=== PATIENT | female | born 1980 | race Caucasian/White ===

== ENCOUNTER 2024-02-13 12:30 | Emergency (ER) | payer MEDICAID, SELFPAY ==
[2024-02-13 12:38] VITALS: BP 149/82; PULSE 79; RESP 16; TEMP 37.1; O2SAT 98; BMI 28.3
--- NOTE | 2024-02-13 12:38 | ED.GENADULT ---
HPI - General Adult General Chief complaint: Back Pain/Injury Stated complaint: L sided pain Time Seen by Provider: 02/13/24 14:49 Source: patient Mode of arrival: ambulatory Limitations: no limitations History of Present Illness ED Provider: Jesus Alberto VELÁSQUEZ HPI narrative: This is a 43-year-old female history of chronic pain to neck and back presenting with neck pain, back pain ongoing for the past year, patient reports she recently moved here from [place], she used to take gabapentin and a muscle relaxer for pain however has not been able to get a refill for her meds as she does not have a primary care provider in the region. She reports today's pain feels like her typical pain. No trauma. No numbness, tingling, fevers, chills, chest pain, shortness of breath, nausea, vomiting, abdominal pain, headache, vision changes, dizziness or weakness. No recent illness Related Data Previous Rx's ?Medication ?Instructions ?Recorded cyclobenzaprine 10 mg tablet 10 mg PO BEDTIME PRN muscle spasm 02/13/24 #7 tabs gabapentin 100 mg capsule 100 mg PO TID #20 caps 02/13/24 ketorolac 10 mg tablet 10 mg PO TID PRN pain 5 days #15 02/13/24 tabs Allergies Allergy/AdvReac Type Severity Reaction Status Date / Time Penicillins Allergy Unknown Verified 02/13/24 12:44 Review of Systems Review of Systems: Yes all other systems are reviewed and are negative [facility] Past Medical History Attestation statement: The following information was validated with the patient. Source: old records reviewed and nursing notes reviewed Social History Social History Advance Directives: No Advance Directives Information Provided: No Do you have a plan to hurt others: No Plan Physical Exam ED Vital Signs: Vital Signs - 24 hr 02/13/24 12:38 Temperature 98.7 F Pulse Rate 79 Respiratory Rate 16 Blood Pressure 149/82 H Pulse Oximetry 98 Oxygen Delivery Method Room Air BMI result Body Mass Index 28.3 vss Appearance: Alert.? Oriented X3.? No acute distress.? Head: Normocephalic, atraumatic, no step-offs or deformities Eyes: Pupils equal, round and reactive to light.? ENT: Pharynx normal.? Neck: Normal inspection.? Neck supple.?+ left sided cervical paraspinous tenderness on exam CVS: Normal heart rate and rhythm.? Pulses normal.? Respiratory: No respiratory distress.? Breath sounds normal.? Abdomen: Soft and nontender.? Skin: Skin warm and dry.? Normal skin color.? Normal skin turgor.? Extremities: No lower extremity edema.? No calf ttp. 5/5 strength to bilateral upper and lower extremities Back: No midline tenderness, no C-spine tenderness, full range of motion, no CVA tenderness bilaterally + left lumbar paraspinous muscle ttp on exam Neuro: Oriented X 3.? No motor deficit.? No sensory deficit. CN 2-12 intact Course Course Course Narrative: This is a rapid medical exam performed by Stacy Vásquez NP: Additional HPI, ROS, PE not included below will be deferred to primary provider. Patient is a 43-year-old Macanese speaking female presenting to the emergency department with complaint of left sided sciatic pain x 1 week. Does not have a PCP. Requesting a prescription for pain medication. Last seen in an ED in [place] 12/16. Denies saddle anesthesia, bowel/bladder incontinence. Plan: lumbar xray Reevaluation(s) Reevaluation #1: Educated patient on diagnosis and treatment plan, answered all question, patient verbalizes understanding. At this time patient will be discharged home, advised to return with new or worsening symptoms. Educated on worrisome signs and symptoms and when to return. At this time I feel comfortable discharge home. Time: 15:11 Medical Decision Making Medical Decision Making [facility] Narrative: 1502 43 year old female presents w/ pain to the left side of my body X 1 year PE cervical and lumbar paraspinous muscle ttp on exam Likely paraspinous muscle spasms likely. Unlikely cauda eqina , cord compression, epidural abscess, fx, dislocaiton. No signs of NV compromise, meningitis, encephalitis. Plan- pain control Differential Diagnosis Differential Diagnoses: The differential diagnosis associated with the presentation includes Likely paraspinous muscle spasms likely. Unlikely cauda eqina , cord compression, epidural abscess, fx, dislocaiton. No signs of NV compromise, meningitis, encephalitis. Admission/Observation Consideration of admission/observation: Escalation of care including admission/observation considered possible External Record Review No records Prescription Management I considered prescription management with: Pain Medication (gabapentin, cyclobenzaprine, ) Discharge Plan Discharge Clinical Impression: Cervical radiculopathy, Lumbar radiculopathy Patient Disposition: Home, Self-Care Instructions: Lumbar Radiculopathy (ED), Cervical Radiculopathy (ED) Additional Instructions: Take your medications as prescribed. If you were prescribed antibiotics today, it is important that you take your medication to their entirety, do not skip any doses, do not finish them early. Follow-up with your primary care provider this week. Return to the emergency department with new or worsening symptoms. Such as fevers, chills, chest pain, shortness of breath, nausea, vomiting, dizziness, headache, vision changes, lethargy In case of emergency call 911 Toradol has been sent to your pharmacy, you tolerated this well in the department. Please take this as prescribed do not take this with ibuprofen, or other NSAIDs, do not mix this with alcohol. Side effects of this medication including increased risk for bleeding and possible kidney injury. Prescriptions: New gabapentin 100 mg capsule 100 mg PO TID Qty: 20 0RF cyclobenzaprine 10 mg tablet 10 mg PO BEDTIME PRN (Reason: muscle spasm) Qty: 7 0RF ketorolac 10 mg tablet 10 mg PO TID PRN (Reason: pain) 5 Days Qty: 15 0RF Referrals: [facility] [Provider Group] - 1 day [place] [Primary Care Provider] - 2 days Stand Alone Forms: Work/School Release Print Language: Macanese
[2024-02-13 15:01] VITALS: BP 129/71; PULSE 74; RESP 16; TEMP 36.6; O2SAT 98
[2024-02-13] MEDS: Ketorolac Tromethamine 30 MG/ML VIAL IM (15:08)
[2024-02-13 15:13] VITALS: BP 129/71; PULSE 74; RESP 16; TEMP 36.6; O2SAT 98
--- NOTE | 2024-02-13 15:13 | PC.NURSE ---
pt medicated for pain per order
== END 2024-02-13 15:15 | disposition home or self-care (01) ==
PROVIDERS: Emergency Provider Emergency Medicine
DX: M54.12 Radiculopathy, cervical region (principal); M54.16 Radiculopathy, lumbar region; M54.2 Cervicalgia; M54.50 Low back pain, unspecified
CPT/HCPCS: 96372; 99283; 99284; J1885